=== PATIENT | female | born 1965 ===

== ENCOUNTER 2021-12-28 05:26 | Day surgery (SDC) | payer OTHER ==
[~2021-12-28] VITALS: Ht 162.6 cm; Wt 63.5 kg
[2021-12-28] MEDS ORDERED: KETO10TA2 PO (10:07)
[2021-12-28] MEDS ORDERED: PERCOCET 5-3251 EACH PO (10:07)
[2021-12-28] MEDS ORDERED: MIRALAX17 GM PO (10:08)
[2021-12-28] MEDS ORDERED: DERMOPLAST PAIN78 GM TOP (10:08)
== END 2021-12-28 12:05 | disposition home or self-care (01) ==
LOC: CIR.AMB 05:26
PROVIDERS: ATTEND Surgery
DX: K60.1 Chronic anal fissure (principal); K60.3 Anal fistula; N81.6 Rectocele; Z20.822 Contact with and (suspected) exposure to COVID-19